=== PATIENT | male | born 1975 | race Caucasian/White ===

== ENCOUNTER 2017-01-29 00:01 | Emergency (ER) | payer MEDICAID ==
[~2017-01-29] VITALS: Ht 198.1 cm; Wt 106.6 kg
[~2017-01-29 00:01] MED LIST: METH500T PO; MOTRIN PO; NORCO5 PO; PARO25TA8 PO; TRAM50TA92 PO
[2017-01-29 00:17] VITALS: BP 127/75; PULSE 93; RESP 16; TEMP 98.1; O2SAT 99
--- NOTE | 2017-01-29 00:17 | NUR ---
PT AMBULAOTRY TO BED 8. REPORT GIVEN TO LINDSAY RN
--- NOTE | 2017-01-29 00:18 | NUR ---
Pt complain of 7/10 lower back pain. 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 And stated he had back pain in the past. Denied SOB at the time. Will continue to monitor
--- NOTE | 2017-01-29 00:20 | NUR ---
DR RODRIGUEZ AT BEDSIDE TO EXAMINE PT AND DISCUSS PLAN OF CARE.
[2017-01-29 00:32] VITALS: BP 128/72; PULSE 89; RESP 16; TEMP 98; O2SAT 99
--- NOTE | 2017-01-29 00:32 | NUR ---
Patient given written and verbal discharge instructions and verbalizes understanding. ER MD discussed with patient the results and treatment provided. Given copies of tests performed in ER. Patient in stable condition. ID arm band removed. Rx of norco 325mg/5mg P.O one-two tab every 4 hours as needed, soma 350mg 1 tab at bedtime with meals by mouth as needed, naproxen 375mg 1-2 tabs daily as needed given. Patient educated on pain management and to follow up with PMD. Verbalized understanding. Pain Scale 2/10, able to. Opportunity for questions provided and answered.
== END 2017-01-29 00:32 | disposition home or self-care (01) ==
LOC: SED 00:01
DX: M54.5 Low back pain (principal)
CPT/HCPCS: 99283

== ENCOUNTER 2018-08-17 17:22 | Emergency (ER) | payer MEDICAID ==
[~2018-08-17] VITALS: Ht 198.1 cm; Wt 108.9 kg
[~2018-08-17 17:22] MED LIST changes: -METH500T PO; -MOTRIN PO; -NORCO5 PO; +PARO25TA15 PO; -PARO25TA8 PO; -TRAM50TA92 PO
[2018-08-17 17:26] VITALS: BP_SYST 135
[2018-08-17 18:30] VITALS: BP_SYST 130
== END 2018-08-17 18:30 | disposition home or self-care (01) ==
LOC: SED 17:22
DX: J02.9 Acute pharyngitis, unspecified (principal); B35.3 Tinea pedis; R03.0 Elevated blood-pressure reading, without diagnosis of hypertension
CPT/HCPCS: 36415; 86403; 87081; 99284

== ENCOUNTER 2018-12-16 19:38 | Emergency (ER) | payer MEDICAID ==
[~2018-12-16] VITALS: Ht 198.1 cm; Wt 104.3 kg
[2018-12-16 20:12] VITALS: BP_SYST 116
--- NOTE | 2018-12-16 21:42 | NUR ---
called in, no answer
--- NOTE | 2018-12-16 21:42 | NUR ---
Pt called in x 2, no answer
--- NOTE | 2018-12-16 21:42 | NUR ---
Patient left without being seen. No further treatment provided. ER MD aware
--- NOTE | 2018-12-16 21:42 | NUR ---
Note tressa in ED - 12/17/18 at 0055 by [email or web address] Patient left without being seen. No further treatment provided. EUSEBIO garcia
== END 2018-12-16 21:42 | disposition left against medical advice (07) ==
LOC: SED 19:38
DX: J02.9 Acute pharyngitis, unspecified (principal); R05 Cough; Z53.21 Procedure and treatment not carried out due to patient leaving prior to being seen by health care provider

== ENCOUNTER 2019-05-14 21:39 | Emergency (ER) | payer MEDICAID ==
[~2019-05-14] VITALS: Ht 198.1 cm; Wt 108.9 kg
[2019-05-14 21:53] VITALS: BP_SYST 129
[2019-05-14] MEDS ORDERED: MORPHINE 4 MG/ML INJ. SYRINGE IVP ONE (23:30)
[2019-05-14] MEDS ORDERED: KETOROLAC TROMETHAMINE 15 MG VIAL IVP ONE (23:30)
[2019-05-14 23:51] LABS: BASOPHILS % (AUTO) 0.4 % (0.0-2.0); EOSINOPHILS # (AUTO) 0.1 K/uL (0.0-0.4); EOSINOPHILS % (AUTO) 1.8 % (0.0-4.0); HEMATOCRIT 45.8 % (36-54); HEMOGLOBIN 15.5 g/dL (14.0-18.0); LYMPHOCYTES % (AUTO) 31.1 % (20.5-51.5); MEAN CORPUSCULAR HEMOGLOBIN 30 pg (27-31); MEAN CORPUSCULAR HGB CONC 34 % (32-36); MEAN CORPUSCULAR VOLUME 88 fL (79.0-98.0); MONOCYTES # (AUTO) 0.5 K/uL (0.0-1.0); MONOCYTES % (AUTO) 8.2 % (1.7-9.3); NEUTROPHILS # (AUTO) 3.8 K/uL (1.8-7.7); NEUTROPHILS % (AUTO) 58.5 % (40.0-70.0); PLATELET COUNT (AUTO) 255 K/uL (130-430); RED BLOOD CELL COUNT(AUTO) 5.22 MIL/uL (4.2-6.2); RED CELL DISTRIBUTION WIDTH 14.3 % (9.0-15.0); WHITE BLOOD COUNT (AUTO) 6.6 K/uL (4.8-10.8)
[2019-05-15 00:10] LABS: CALCIUM 9.6 mg/dL (8.4-11.0); CREATININE 1.13 mg/dL (0.55-1.30); POTASSIUM 3.6 mmol/L (3.5-5.1)
[2019-05-15] MEDS ORDERED: IOHEXOL 100 ML IV ONE (00:13)
[2019-05-15 00:16] LABS: ALBUMIN 3.8 g/dL (3.4-4.8); TOTAL BILIRUBIN 0.5 mg/dL (0.0-1.0)
[2019-05-15] MEDS ORDERED: fentaNYL CITRATE/PF 100 MCG/2 ML AMP IVP ONE (01:15)
[2019-05-15 03:25] VITALS: BP_SYST 122
== END 2019-05-15 03:25 | disposition home or self-care (01) ==
LOC: SED 21:39
DX: S13.9XXA Sprain of joints and ligaments of unspecified parts of neck, initial encounter (principal); S23.9XXA Sprain of unspecified parts of thorax, initial encounter; S33.5XXA Sprain of ligaments of lumbar spine, initial encounter; V40.9XXA Unspecified car occupant injured in collision with pedestrian or animal in traffic accident, initial encounter; Y93.89 Activity, other specified; Y92.411 Interstate highway as the place of occurrence of the external cause; Y99.8 Other external cause status
CPT/HCPCS: 36415; 71260; 72040; 72100; 74177; 80053; 85025; 96374; 96375 ×2; 99284; J1885; J2270; J3010; Q9967

== ENCOUNTER 2019-05-17 18:47 | Emergency (ER) | payer MEDICAID ==
[~2019-05-17] VITALS: Ht 198.1 cm; Wt 108.9 kg
[2019-05-17 19:02] VITALS: BP_SYST 149
[2019-05-17] MEDS ORDERED: fentaNYL CITRATE/PF 100 MCG/2 ML AMP IM ONE ×2 (20:30→21:15)
[2019-05-17] MEDS ORDERED: MORPHINE 4 MG/ML INJ. SYRINGE IM ONE (22:00)
[2019-05-17] MEDS ORDERED: NACL 0.9% 1,000 ML IV ONE (22:45)
[2019-05-17] MEDS ORDERED: fentaNYL CITRATE/PF 100 MCG/2 ML AMP IVP ONE (22:45)
[2019-05-17] MEDS ORDERED: KETOROLAC TROMETHAMINE 30 MG VIAL IVP ONE (22:45)
[2019-05-18] MEDS ORDERED: KETOROLAC TROMETHAMINE 30 MG VIAL IVP ONE (00:45)
[2019-05-18 01:44] VITALS: BP_SYST 149
== END 2019-05-18 01:44 | disposition home or self-care (01) ==
LOC: SED 18:47
DX: S33.5XXA Sprain of ligaments of lumbar spine, initial encounter (principal); R03.0 Elevated blood-pressure reading, without diagnosis of hypertension; V89.2XXA Person injured in unspecified motor-vehicle accident, traffic, initial encounter; Y93.89 Activity, other specified; Y92.89 Other specified places as the place of occurrence of the external cause; Y99.8 Other external cause status
CPT/HCPCS: 96372; 96374; 96375 ×2; 99283; J1885 ×2; J2270; J3010; J7030

== ENCOUNTER 2019-12-05 04:49 | Emergency (ER) | payer MEDICAID ==
[~2019-12-05] VITALS: Ht 198.1 cm; Wt 111.1 kg
[2019-12-05 05:27] VITALS: BP_SYST 141
--- NOTE | 2019-12-05 06:05 | NUR ---
Patient to ER bed 02 to gown for evaluation. Side rails up. Report given to BRYAN Levin
--- NOTE | 2019-12-05 06:09 | NUR ---
ER at bedside examining patient.
--- NOTE | 2019-12-05 06:09 | NUR ---
Pt brought in by self and mother. Pt states that he has had productive cough and congestion x3 days. Pt states that he has sore throat, tactile fever and cough/congestion for 3 days. Pt states that he has used otc medications with some relief, and wanted to come to ED to see if he could find the cause of cough. Pt denies chest pain, nausea, vomiting, diarrhea, shortness of breath, any other medical complaint at this time. Pt resting in ED bed comfortably. No acute distress. Vss
[2019-12-05 07:07] VITALS: BP_SYST 141
--- NOTE | 2019-12-05 07:07 | NUR ---
Patient given written and verbal discharge instructions and verbalizes understanding. ER MD discussed with patient the results and treatment provided. Patient in stable condition. ID arm band removed. IV catheter removed intact and dressing applied, no active bleeding. Rx of promethazine, azithromycin given. Patient educated on pain management and to follow up with PMD. Pain Scale 0/10. Opportunity for questions provided and answered. Medication side effect fact sheet provided.
== END 2019-12-05 07:07 | disposition home or self-care (01) ==
LOC: SED 04:49
DX: J20.9 Acute bronchitis, unspecified (principal)
CPT/HCPCS: 71045; 99283

== ENCOUNTER 2020-06-05 16:23 | Emergency (ER) | payer MEDICAID ==
[~2020-06-05] VITALS: Ht 198.1 cm; Wt 108.9 kg
[2020-06-05 16:25] VITALS: BP_SYST 130
[2020-06-05] MEDS ORDERED: ASPIRIN 81 MG TAB.CHEW PO ONE (17:00)
[2020-06-05 17:32] LABS: BASOPHILS % (AUTO) 0.8 % (0.0-2.0); EOSINOPHILS # (AUTO) 0.2 K/uL (0.0-0.4); EOSINOPHILS % (AUTO) 3.8 % (0.0-4.0); HEMATOCRIT 44.3 % (36-54); HEMOGLOBIN 14.7 g/dL (14.0-18.0); LYMPHOCYTES # (AUTO) 1.9 K/uL (1.0-5.5); LYMPHOCYTES % (AUTO) 35.2 % (20.5-51.5); MEAN CORPUSCULAR HEMOGLOBIN 29 pg (27-31); MEAN CORPUSCULAR HGB CONC 33 % (32-36); MEAN CORPUSCULAR VOLUME 87 fL (79.0-98.0); MONOCYTES # (AUTO) 0.5 K/uL (0.0-1.0); MONOCYTES % (AUTO) 8.6 % (1.7-9.3); NEUTROPHILS # (AUTO) 2.7 K/uL (1.8-7.7); NEUTROPHILS % (AUTO) 51.6 % (40.0-70.0); PLATELET COUNT (AUTO) 219 K/uL (130-430); RED BLOOD CELL COUNT(AUTO) 5.09 MIL/uL (4.2-6.2); RED CELL DISTRIBUTION WIDTH 14.6 % (9.0-15.0); WHITE BLOOD COUNT (AUTO) 5.3 K/uL (4.8-10.8)
[2020-06-05 17:38] LABS: CALCIUM 9.1 mg/dL (8.4-11.0); CREATININE 1.25 mg/dL (0.55-1.30); POTASSIUM 4.7 mmol/L (3.5-5.1)
[2020-06-05 17:44] LABS: ALBUMIN 3.7 g/dL (3.4-4.8); TOTAL BILIRUBIN 0.4 mg/dL (0.0-1.0)
[2020-06-05 18:32] VITALS: BP_SYST 130
== END 2020-06-05 18:32 | disposition home or self-care (01) ==
LOC: SED 16:23
DX: R07.89 Other chest pain (principal)
CPT/HCPCS: 36415; 71045; 80053; 83690-TC; 84484; 85025; 93005; 99285

== ENCOUNTER 2022-02-15 06:13 | Emergency (ER) | payer MEDICAID ==
[~2022-02-15 06:13] MED LIST changes: -PARO25TA15 PO; +PARO25TA21 PO
--- NOTE | 2022-02-15 06:20 | NUR ---
Placed in room 07 . Placed on blood pressure machine and pulse oximeter. To gown for exam. Side rails up. Addendum: 02/15/22 at 0650 by [email or web address] BRYAN Cardona
--- NOTE | 2022-02-15 06:25 | NUR ---
Pt brought self in from home due to R knee pain. States he was doing squats last night which caused the onset of pain. Pain is non-radiating and is a 5/10. Arrived to ED in no acute distress. Breathing adequaetely on RA.
--- NOTE | 2022-02-15 06:26 | NUR ---
ER at bedside examining patient.
--- NOTE | 2022-02-15 06:31 | NUR ---
ER at bedside examining patient.
[2022-02-15] MEDS ORDERED: NAPR-1172 PO (06:34)
[2022-02-15 06:44] VITALS: BP_SYST 143
[2022-02-15] MEDS ORDERED: KETOROLAC TROMETHAMINE 60 MG/2 ML VIAL IM ONE (06:45)
[2022-02-15 06:56] VITALS: BP_SYST 140
--- NOTE | 2022-02-15 06:57 | NUR ---
Patient given written and verbal discharge instructions and verbalizes understanding. ER MD Cordero discussed with patient the results and treatment provided. Patient in stable condition. ID arm band removed. Rx of Naproxen sent to pharmacy of choice. Patient educated on pain management and to follow up with PMD. Pain Scale 2/10. Opportunity for questions provided and answered. Medication side effect fact sheet provided.
== END 2022-02-15 06:56 | disposition home or self-care (01) ==
LOC: SED 06:13
DX: M76.51 Patellar tendinitis, right knee (principal); Z79.899 Other long term (current) drug therapy
CPT/HCPCS: 96372; 99283; J1885

== ENCOUNTER 2022-05-03 10:33 | Emergency (ER) | payer MEDICAID ==
[~2022-05-03] VITALS: Ht 198.1 cm; Wt 106.6 kg
[~2022-05-03 10:33] MED LIST changes: +NAPR-1172 PO
[2022-05-03 10:35] VITALS: BP_SYST 150
[2022-05-03 11:25] LABS: BASOPHILS % (AUTO) 0.2 % (0.0-2.0); EOSINOPHILS # (AUTO) 0.1 K/uL (0.0-0.4); EOSINOPHILS % (AUTO) 2.5 % (0.0-4.0); HEMATOCRIT 46.8 % (36-54); HEMOGLOBIN 16.1 g/dL (14.0-18.0); LYMPHOCYTES # (AUTO) 1.8 K/uL (1.0-5.5); LYMPHOCYTES % (AUTO) 34.1 % (20.5-51.5); MEAN CORPUSCULAR HEMOGLOBIN 29 pg (27-31); MEAN CORPUSCULAR HGB CONC 34 % (32-36); MEAN CORPUSCULAR VOLUME 86 fL (79.0-98.0); MONOCYTES # (AUTO) 0.4 K/uL (0.0-1.0); NEUTROPHILS # (AUTO) 2.9 K/uL (1.8-7.7); NEUTROPHILS % (AUTO) 55.2 % (40.0-70.0); PLATELET COUNT (AUTO) 238 K/uL (130-430); RED BLOOD CELL COUNT(AUTO) 5.47 MIL/uL (4.2-6.2); RED CELL DISTRIBUTION WIDTH 14.3 % (9.0-15.0); WHITE BLOOD COUNT (AUTO) 5.3 K/uL (4.8-10.8)
[2022-05-03 11:42] LABS: ANION GAP 6 (5-15); CALCIUM 9.3 mg/dL (8.4-11.0); CHLORIDE 102 mmol/L (98-107); GLUCOSE 88 mg/dL (70-99); POTASSIUM 4.4 mmol/L (3.5-5.1); SODIUM SERUM 139 mmol/L (136-145); UREA NITROGEN, BLOOD 9 mg/dL (8-21)
[2022-05-03 11:44] LABS: GFR AFRICAN AMERICAN 103 mL/min (>90)
[2022-05-03 11:49] LABS: ALANINE AMINOTRANSFERASE 26 U/L (12-78); ASPARTATE AMINOTRANSFERASE 24 U/L (10-37); LIPASE 175 U/L (73-393); TOTAL BILIRUBIN 0.4 mg/dL (0.0-1.0)
[2022-05-03] MEDS ORDERED: OMEP40CA20 PO (12:05)
== END 2022-05-03 12:28 | disposition home or self-care (01) ==
LOC: SED 10:33
DX: K29.70 Gastritis, unspecified, without bleeding (principal); R07.82 Intercostal pain; R06.02 Shortness of breath; Z79.899 Other long term (current) drug therapy
CPT/HCPCS: 36415; 71045; 80053; 83690; 84484; 85025; 93005; 99285

== ENCOUNTER 2024-07-25 16:33 | Emergency (ER) | payer OTHER, MEDICAID ==
[~2024-07-25] VITALS: Ht 198.1 cm; Wt 113.4 kg
[~2024-07-25 16:33] MED LIST changes: +CEPH-548 PO; +IBUP-1971 PO; +NEOM10SO7 EACH EAR; +OMEP40CA20 PO
[2024-07-25 16:56] VITALS: BP_SYST 122; PULSE 100; RESP 22; TEMP 97; O2SAT 97
[2024-07-25] MEDS ORDERED: LIDOCAINE/EPI 2% 1:100000 20 ML VIAL INJ ONE (19:00)
[2024-07-25] MEDS: methocarbamoL 500 MG TABLET PO ONE (19:19)
[2024-07-25] MEDS: ACETAMINOPHEN 500 MG TABLET PO ONE (19:19)
[2024-07-25] MEDS: KETOROLAC TROMETHAMINE 30 MG VIAL IM ONE (19:19)
[2024-07-25] MEDS: LIDOCAINE PATCH 5% 1 EA TP ONE (19:19)
[2024-07-25] MEDS: MORPHINE 4 MG INJ. 4 MG/ML VIAL IM ONE (20:16)
[2024-07-25 20:32] VITALS: BP_SYST 128; PULSE 82; RESP 18; TEMP 97; O2SAT 99
== END 2024-07-25 20:32 | disposition home or self-care (01) ==
LOC: SED 16:33
DX: S39.012A Strain of muscle, fascia and tendon of lower back, initial encounter (principal); S00.01XA Abrasion of scalp, initial encounter; Z79.899 Other long term (current) drug therapy; Z79.2 Long term (current) use of antibiotics; V43.52XA Car driver injured in collision with other type car in traffic accident, initial encounter; Y93.89 Activity, other specified; Y92.89 Other specified places as the place of occurrence of the external cause; Y99.8 Other external cause status
CPT/HCPCS: 99284; 96372; J1885; J2270

== ENCOUNTER 2024-08-08 12:07 | Emergency (ER) | payer MEDICAID, OTHER ==
[~2024-08-08] VITALS: Ht 198.1 cm; Wt 113.4 kg
[2024-08-08 12:48] VITALS: BP_SYST 135; PULSE 86; RESP 18; TEMP 97.6; O2SAT 97
[2024-08-08] MEDS ORDERED: AMOX-423 PO (13:34)
[2024-08-08 14:23] VITALS: BP_SYST 135; PULSE 86; RESP 18; TEMP 97.6; O2SAT 97
== END 2024-08-08 14:16 | disposition home or self-care (01) ==
LOC: SED 12:07
DX: H66.92 Otitis media, unspecified, left ear (principal); Z79.899 Other long term (current) drug therapy; Z79.2 Long term (current) use of antibiotics
CPT/HCPCS: 99283

== ENCOUNTER 2024-08-14 08:35 | Emergency (ER) | payer MEDICAID ==
[~2024-08-14] VITALS: Ht 198.1 cm; Wt 113.4 kg
[~2024-08-14 08:35] MED LIST changes: +AMOX-423 PO
[2024-08-14 08:39] VITALS: BP_SYST 144; PULSE 111; RESP 18; TEMP 98.3; O2SAT 98
[2024-08-14 09:07] LABS: BASOPHILS % (AUTO) 0.6 % (0.0-2.0); EOSINOPHILS # (AUTO) 0.1 K/uL (0.0-0.4); HEMATOCRIT 46.9 % (36-54); HEMOGLOBIN 15.6 g/dL (14.0-18.0); LYMPHOCYTES # (AUTO) 1.7 K/uL (1.0-5.5); LYMPHOCYTES % (AUTO) 36.8 % (20.5-51.5); MEAN CORPUSCULAR HEMOGLOBIN 29 pg (27-31); MEAN CORPUSCULAR HGB CONC 33 % (32-36); MEAN CORPUSCULAR VOLUME 87 fL (79.0-98.0); MONOCYTES # (AUTO) 0.3 K/uL (0.0-1.0); MONOCYTES % (AUTO) 7.2 % (1.7-9.3); NEUTROPHILS # (AUTO) 2.4 K/uL (1.8-7.7); NEUTROPHILS % (AUTO) 52.4 % (40.0-70.0); PLATELET COUNT (AUTO) 246 K/uL (130-430); RED BLOOD CELL COUNT(AUTO) 5.38 MIL/uL (4.2-6.2); RED CELL DISTRIBUTION WIDTH 14.3 % (9.0-15.0); WHITE BLOOD COUNT (AUTO) 4.6 K/uL (4.8-10.8)
[2024-08-14 09:14] LABS: ERYTHROCYTE SEDIMENTATION RATE 3 MM/HR (0-15)
[2024-08-14 09:26] LABS: PROTHROMBIN TIME 10.5 SECS (9.5-12.5)
[2024-08-14 09:35] LABS: CALCIUM 9.1 mg/dL (8.4-11.0); CREATININE 1.06 mg/dL (0.55-1.30); POTASSIUM 4.5 mmol/L (3.5-5.1)
[2024-08-14] MEDS ORDERED: CARB15DR93 EACH EAR (09:59)
[2024-08-14 10:35] VITALS: BP_SYST 144; PULSE 111; RESP 18; TEMP 98.3; O2SAT 98
[2024-08-14] MEDS ORDERED: HYDROmorphone 2 MG/ML VIAL ONE (11:27)
== END 2024-08-14 22:00 | disposition home or self-care (01) ==
LOC: SED 08:35
DX: H91.92 Unspecified hearing loss, left ear (principal); Z79.899 Other long term (current) drug therapy; Z79.2 Long term (current) use of antibiotics
CPT/HCPCS: 99284; 70450; 80048; 85025; 85610; 85651; 85730; 36415; 82397; J1171